=== PATIENT | female | born 1965 | race Caucasian/White ===

== ENCOUNTER 2018-08-27 14:37 | Emergency (ER) | payer OTHER ==
[~2018-08-27] VITALS: Ht 170.2 cm; Wt 81.7 kg
[~2018-08-27 14:37] MED LIST: NAPROSYN500 MG; NOHOMEMEDICATIONS; NORCO 5-325 TA1 EACH PO; XANAX XR1 MG
[2018-08-27] MEDS ORDERED: NOHOMEMEDICATIONS (14:49)
[2018-08-27 15:12] LABS: HEMATOCRIT 44.6 % (37.0-47.0); HEMOGLOBIN 15.2 gm/dL (12.0-15.0); MCH 30.6 pg (26.0-34.0); MCV 89.9 fL (80.0-100.0); MPV 7.8 fl. (7.2-11.1); NUCLEATED RBCS 0 /100WBC; PLATELET COUNT* 227 thou/uL (150-400); RBC 4.96 mil/uL (4.20-5.00); RDW-CV 13.2 % (10.5-14.5); WBC 10.7 thou/uL (4.0-11.0)
[2018-08-27 15:17] LABS: CALCIUM 9.2 mg/dL (8.5-10.1); CREATININE 0.8 mg/dL (0.6-1.3)
[2018-08-27 15:21] LABS: ALBUMIN 3.5 g/dL (3.4-5.0); TOTAL BILIRUBIN 0.4 mg/dL (<0.1-1.0); TOTAL PROTEIN 7.8 g/dL (6.4-8.2)
[2018-08-27] MEDS ORDERED: DOXYCYCLINE 10100 MG PO (16:01)
[2018-08-27] MEDS ORDERED: PREDNISONE 5 MG5 MG PO (16:01)
[2018-08-27] MEDS ORDERED: PROAIR HFA8.5 GM INH (16:01)
[2018-08-27] MEDS ORDERED: TESSALON PERLE100 MG PO (16:01)
[2018-08-27] MEDS ORDERED: PROMETHAZINE V473 ML PO (16:01)
[2018-08-27] MEDS ORDERED: ACETAMINOPHEN-1 EAC1 PO (16:10)
[2018-08-27 16:14] VITALS: BP 137/80
[2018-08-27 16:15] LABS: ABSOLUTE EOSINOPHILS 0.1 thou/uL (0.0-0.7); ABSOLUTE MONOCYTES 0.9 thou/uL (0.0-1.2); ABSOLUTE NEUTROPHILS 8.8 thou/uL (1.6-8.1)
[2018-08-27 16:17] LABS: PLATELET ESTIMATE ADEQUATE
== END 2018-08-27 16:15 | disposition home or self-care (01) ==
LOC: M.ERS 14:37
PROVIDERS: Physician Assistant
DX: R05 Cough (principal); R06.02 Shortness of breath; R53.81 Other malaise; G62.9 Polyneuropathy, unspecified; F17.210 Nicotine dependence, cigarettes, uncomplicated; Z90.710 Acquired absence of both cervix and uterus; Z98.890 Other specified postprocedural states; Z85.43 Personal history of malignant neoplasm of ovary

== ENCOUNTER 2018-11-18 11:17 | Inpatient (IN) | payer OTHER ==
[~2018-11-18] VITALS: Ht 170.2 cm; Wt 95.3 kg
[2018-11-18] VITALS (11 sets, daily range): BP systolic 149–196; BP diastolic 76–98
--- NOTE | ~2018-11-18 | CON ---
[address] [address] CONSULTATION Name: CODIE RODGERS Room: [address] IN .R.#: [id number] Admission: 11/18/18 Attend Phys: Balbir Allison MD Discharge: Date of : 69 Report #: [id number] THIS REPORT FOR: //name// CC: THANH physician/PCP Balbir Allison DATE OF SERVICE: 11/19/2018 CONSULTATION: Infectious diseases. HISTORY OF PRESENT ILLNESS: The patient is a 52-year-old white female admitted to the hospital on 11/18/2018 with a 24-hour history of headache and depressed mental status. Spinal fluid showed inflammatory changes. The patient was treated empirically for meningitis. Infectious Disease consultation was requested. The patient has no history of recent trauma, nothing that might explain why she might have a headache. She has had no exposure to anyone with a similar illness. PAST MEDICAL HISTORY: The patient has a history of cancer of the ovary, which I believe is in remission after chemotherapy. Other diagnoses include anxiety and depression. PAST SURGICAL HISTORY: Include section, hysterectomy and Port-A-Cath device for chemotherapy in 2011. ALLERGIES: Our chart shows no drug allergies. SOCIAL HISTORY: The patient is unmarried and lives with her daughter and grandchildren. She does smoke cigarettes. There is a question of alcohol use. She apparently was a heavy drinker in the past. She tells me now that she drinks, but not every day, but does not otherwise characterize or quantify her alcohol consumption. She is somewhat sedated after being extremely agitated this morning and cannot give much of a history. There is a history of consistent marijuana use. REVIEW OF SYSTEMS: Unavailable because of sedation. When asked, the patient will answer some questions. She does not endorse any cough, chest pain, shortness of breath, nausea, vomiting, diarrhea or urinary complaints. She was complaining of a severe headache earlier and says now that she has no head pain. PHYSICAL EXAMINATION: GENERAL: The patient appears her stated age, sedated, not in distress. When stimulated, the patient can arouse, open her eyes usp and answer a few questions [place] [address] CONSULTATION Name: CODIE RODGERS Room: [address] IN [facility].#: [id number] Admission: 11/18/18 Attend Phys: Balbir Allison MD Discharge: Date of : 69 Report #: [id number] SKIN: Shows no rash, lesion or exanthem. Palms and soles are normal. ENT: Shows some periorbital edema. Pupils are contracted suggestive of narcotic use. The patient did not demonstrate any photophobia, when I signed a bright light into her eyes. The oral cavity was normal, but the patient would not fully open her mouth for examination. NECK: Supple. NEUROLOGIC: When I dorsiflexed her head with my hands raising it off the pillow, she did not resist or grimace. No adenopathy. CARDIOVASCULAR: Heart sounds are normal. LUNGS: Clear to anterior auscultation. ABDOMEN: Belly soft and nontender. EXTREMITIES: Unremarkable. LABORATORY DATA: White count is 10.1, hemoglobin 14, hematocrit 43%, platelet 222,000. Electrolytes, BUN, creatinine, liver function tests are normal. Glucose was 134 in the ER, which compares to the spinal fluid glucose 57 an hour later. The spinal fluid analysis showed 581 white cells, 96% monos and lymphocytes and only 4% polys. The sugar was 57. The protein in the spinal fluid was 338. Other studies included normal liver tests, normal ammonia, normal lactate. Blood cultures x 2 are negative. Spinal fluid cultures negative so far. Chest x-ray is negative. CT of the head is negative. IMPRESSION: Aseptic meningitis, possibly complicated with alcohol withdrawal. PLAN: Meningitis patients typically want to hold very still with minimal stimulation in a dark room and resist being removed. The fact the patient was thrashing suggest that there may have been another component, very possible alcohol withdrawal, superimposed on her pain from meningitis. The patient now is on low dose Precedex and says she has no pain and is lying quietly, but tends to fall quickly back asleep. The spinal fluid analysis is not suggestive of bacterial meningitis. Although the spinal fluid white count is elevated, it is well below the usual threshold for bacterial meningitis, is also mostly lymphocytes and monocytes. This most likely is an aseptic meningitis, probably viral. At this time, I would suggest we can discontinue the vancomycin and Rocephin for bacterial meningitis and discontinue isolation, which is needed for meningococcal meningitis. We should continue the acyclovir until we can rule out herpes. I have asked her herpes PCR on spinal fluid be run. We could do the full viral panel, although the other viruses really do not affect treatment and that is a rather expensive test. We will continue to treat the patient for alcohol withdrawal. I am hopeful that she will wake up and be able to give us some more thorough history regarding tobacco, alcohol, and drug use to see this may be a factor in her condition. For now, we will treat the patient with supportive therapy, appropriate sedation, [place] [address] CONSULTATION Name: CODIE RODGERS Room: [address]#: [id number] Admission: 11/18/18 Attend Phys: Balbir Allison MD Discharge: Date of : 69 Report #: [id number] I appreciate the opportunity to offer input in the care of this patient. Thank you for requesting infectious disease input. Dr. Isabel will take over starting Tuesday. By: 1735 2250Martin Campbell MD /parth
--- NOTE | ~2018-11-18 | CON ---
[address] [address] CONSULTATION Name: CODIE RODGERS Room: [address] IN M.R.#: [id number] Admission: 11/18/18 Attend Phys: Balbir Allison MD Discharge: 11/22/18 Date of : 69 Report #: [id number] THIS REPORT FOR: //name// CC: FAM physician/PCP Balbir Allison MD DATE OF SERVICE: 11/22/2018 REFERRING PHYSICIAN: Dr. Balbir Allison. The patient has no primary care provider REASON FOR CONSULTATION: Hematemesis. IMPRESSION: 1. Scant hematemesis, most compatible with either reflux esophagitis versus Candida-Sanders tear versus less likely peptic ulcer disease. 2. Chronic acid reflux, well controlled with ranitidine once daily. 3. Recent diagnosis of suspected viral meningitis. 4. Personal history of ovarian cancer for which the patient was treated for the same back in [id number] and she has no evidence for disease at this time. (The patient is followed by Dr. Alyssa Barfield at [facility]). 5. ____ previous colonoscopy performed within the last year or so at [facility] and being negative with 2 previous examinations also being negative. 6. Chronic alcohol use. RECOMMENDATIONS: The patient appears to be stable to undergo endoscopic evaluation. Proceed with upper endoscopy today and make further recommendations thereafter. HISTORY OF PRESENT ILLNESS: The patient is a pleasant 52-year-old white female who presented to the Emergency Room with complaints of rather severe headache, nausea, vomiting, photophobia and was diagnosed with aseptic meningitis. She is currently on acyclovir for the same. She has had some problems with nausea, vomiting when she came into the hospital and has had some scant hematemesis. She denies dysphagia, odynophagia, but she has had previous upper endoscopies and dilations in the past. She does have reflux for which she takes ranitidine at home on a regular basis, she takes [id number]-[id number]. She denies any problem with any abdominal pain or problem with her bowels or bowel frequency. She has undergone endoscopic studies of his upper and lower GI tracts in the past at [facility] and her last colonoscopy was performed within the last couple of years by Dr. Lakhani's office in [facility]. She states it was normal. She did have some diverticular disease. [place] [address] CONSULTATION Name: CODIE RODGERS Room: [address] IN [facility]#: [id number] Admission: 11/18/18 Attend Phys: Balbir Allison MD Discharge: 11/22/18 Date of : 69 Report #: [id number] better compared to where she was with her headache and tolerating diet. ALLERGIES: None. MEDICATIONS: Include ranitidine and she has been on inhalers in the past. PAST MEDICAL AND SURGICAL HISTORY: Remarkable for ovarian cancer for which she was diagnosed and treated from [id number]. She also had full hysterectomy and left adrenal gland removal. She has underlying COPD as well. SOCIAL HISTORY: She smokes 1-2 packs a day; drinks alcohol on daily basis, about a pint of vodka. FAMILY HISTORY: Negative. PHYSICAL EXAMINATION: GENERAL: Revealed a 52-year-old white female, appears older than stated age. CARDIOPULMONARY: Revealed a regular rate and rhythm. LUNGS: Clear. ABDOMEN: Soft and not tender. No rebound or guarding noted. LABORATORY DATA: Revealed hemoglobin of 11 and otherwise normal CBC. Complete metabolic panel was negative. DISCUSSION: At the present time, the patient has had some problems with nausea, vomiting, hematemesis. We will proceed with upper endoscopy today and make further recommendations thereafter. By: 1406 [id number] Brownlee DO /parth
[~2018-11-18 11:17] MED LIST changes: +ACETAMINOPHEN-1 EAC1 PO; +DOXYCYCLINE 10100 MG PO; +PREDNISONE 5 MG5 MG PO; +PROAIR HFA8.5 GM INH; +PROMETHAZINE V473 ML PO; +TESSALON PERLE100 MG PO
[2018-11-18 15:15] LABS: HEMATOCRIT 46.9 % (37.0-47.0); HEMOGLOBIN 15.7 gm/dL (12.0-15.0); MCH 30.4 pg (26.0-34.0); MCHC 33.5 g/dL (28.0-37.0); MCV 90.7 fL (80.0-100.0); MPV 8.8 fl. (7.2-11.1); NUCLEATED RBCS 0 /100WBC; PLATELET COUNT* 228 thou/uL (150-400); RBC 5.17 mil/uL (4.20-5.00); RDW-CV 13.1 % (10.5-14.5); WBC 11.5 thou/uL (4.0-11.0)
[2018-11-18 15:19] LABS: CALCIUM 9.9 mg/dL (8.5-10.1); CREATININE 0.9 mg/dL (0.6-1.3); POTASSIUM 3.9 mmol/L (3.5-5.1)
[2018-11-18 15:31] LABS: TOTAL BILIRUBIN 0.4 mg/dL (<0.1-1.0); TOTAL PROTEIN 8.4 g/dL (6.4-8.2)
[2018-11-18 15:35] LABS: CSF GLUCOSE 57 mg/dl (40-70)
[2018-11-18 15:46] LABS: CSF PROTEIN 338.5 mg/dl (15-45)
[2018-11-18 16:34] LABS: CSF CLARITY SLIGHTLY HAZY; CSF COLOR COLORLESS; VOLUME 12 ml
[2018-11-18 16:35] LABS: CSF RBC 164 /mm3
[2018-11-18 16:46] LABS: CSF LYMPHOCYTES 75 % (40-80); CSF MONONUCLEARS 21 % (15-45); CSF POLYS 4 % (0-6)
[2018-11-18 16:49] LABS: CSF WBC 581 /mm3 (0-10)
[2018-11-18 17:08] LABS: ABSOLUTE LYMPHOCYTES 0.7 thou/uL (0.8-5.3); ABSOLUTE MONOCYTES 0.6 thou/uL (0.0-1.2); ABSOLUTE NEUTROPHILS 10.2 thou/uL (1.6-8.1)
[2018-11-18 17:09] LABS: PLATELET ESTIMATE ADEQUATE
[2018-11-18 23:01] LABS: AMP/METHAMP Negative (Negative); BARBITURATES Negative (Negative); BENZODIAZEPINES Negative (Negative); COCAINE Negative (Negative); METHADONE Negative (Negative); OPIATES POSITIVE (Negative); PCP Negative (Negative); THC POSITIVE (Negative)
[2018-11-18 23:09] LABS: URINE BILIRUBIN NEGATIVE (Negative); URINE BLOOD NEGATIVE (Negative); URINE CLARITY CLEAR; URINE COLOR YELLOW; URINE GLUCOSE-RANDOM NEGATIVE (Negative); URINE KETONES NEGATIVE (Negative); URINE LEUKOCYTES-REFLEX NEGATIVE (Negative); URINE NITRITE-REFLEX NEGATIVE (Negative); URINE PROTEIN 2+ (Negative); URINE SPECIFIC GRAVITY >= 1.030 (1.005-1.030); URINE UROBILINOGEN 0.2 E.U./dl (0.2-1.0)
[2018-11-18 23:43] LABS: CASTS None Seen /LPF (None Seen); MUCUS 4-6 Moderate strn/LPF (None Seen); SQUAMOUS >10 Many /LPF (0-3)
[2018-11-18 23:44] LABS: AMORPHOUS URATES Few /LPF (None Seen); URINE RBC None Seen /HPF (0-2); URINE WBC-REFLEX 0-5 Rare /HPF (0-5)
[2018-11-19] VITALS (26 sets, daily range): BP systolic 98–168; BP diastolic 57–93
[2018-11-19 01:50] LABS: CALCIUM 9.2 mg/dL (8.5-10.1); MAGNESIUM 1.5 mg/dL (1.8-2.4); POTASSIUM 3.9 mmol/L (3.5-5.1)
[2018-11-19 01:51] LABS: PROTIME 10.4 Seconds (9.20-11.50)
[2018-11-19 02:21] LABS: ABSOLUTE LYMPHOCYTES 0.4 thou/uL (0.8-5.3); ABSOLUTE MONOCYTES 0.3 thou/uL (0.0-1.2); ABSOLUTE NEUTROPHILS 9.4 thou/uL (1.6-8.1); BASOPHILS 0.1 %; HEMATOCRIT 43.3 % (37.0-47.0); HEMOGLOBIN 14.6 gm/dL (12.0-15.0); LYMPHOCYTES 3.5 %; MCH 30.3 pg (26.0-34.0); MCHC 33.6 g/dL (28.0-37.0); MCV 90.2 fL (80.0-100.0); MONOCYTES 3.2 %; MPV 8.4 fl. (7.2-11.1); NUCLEATED RBCS 0 /100WBC; PLATELET COUNT* 222 thou/uL (150-400); POLYS 93.2 %; RDW-CV 13.2 % (10.5-14.5); WBC 10.1 thou/uL (4.0-11.0)
[2018-11-20] VITALS (15 sets, daily range): BP systolic 113–178; BP diastolic 62–95
[2018-11-20 04:22] LABS: HEMATOCRIT 38.6 % (37.0-47.0); MCH 30.4 pg (26.0-34.0); MCHC 33.6 g/dL (28.0-37.0); MCV 90.3 fL (80.0-100.0); MPV 8.1 fl. (7.2-11.1); RBC 4.27 mil/uL (4.20-5.00); RDW-CV 13.2 % (10.5-14.5); WBC 9.4 thou/uL (4.0-11.0)
[2018-11-20 05:03] LABS: ALBUMIN 2.8 g/dL (3.4-5.0); CALCIUM 8.3 mg/dL (8.5-10.1); MAGNESIUM 1.9 mg/dL (1.8-2.4); POTASSIUM 3.9 mmol/L (3.5-5.1); TOTAL BILIRUBIN 0.5 mg/dL (<0.1-1.0); TOTAL PROTEIN 6.3 g/dL (6.4-8.2)
[2018-11-20 14:06] LABS: HIV-1/HIV-2 ANTIBODY Non Reactive (Non Reactive)
[2018-11-21 00:40] VITALS: BP 163/82
[2018-11-21 04:21] VITALS: BP 162/85
[2018-11-21 10:11] VITALS: BP 155/88
--- NOTE | 2018-11-21 15:02 | 2DMMODE ---
[place] [address] 2 D/M-MODE ECHOCARDIOGRAM Name: CODIE RODGERS Room: [address] IN [facility]#: [id number] Admission: 11/18/18 Attend Phys: Balbir Allison MD Discharge: Date of : 69 Date of Service: 11/21/18 1502 Report #: [id number] THIS REPORT FOR: //name// APPROVED REPORT Study performed: 11/21/2018 11:34:29 EXAM: Comprehensive 2D, Doppler, and color-flow Echocardiogram Patient Location: In-Patient Room #: [facility] Status: routine BSA: 1.98 HR: 81 bpm BP: 155/88 mmHg Rhythm: NSR Other Information Study Quality: Good Indications Tachycardia Hypertension/HDD SVT 2D Dimensions IVSd: 8.65 (7-11mm) LVOT Diam: 20.06 (18-24mm) LVDd: 43.05 mm PWd: 8.37 (7-11mm) Ascending Ao: 30.44 (22-36mm) LVDs: 26.79 (25-40mm) Aortic Root: 29.02 mm Volumes Left Atrial Volume (Systole) LA ESV Index: 20.60 mL/m2 Aortic Valve AoV Peak Rodger.: 1.51 m/s AO Peak Gr.: 9.07 mmHg LVOT Max P.72 mmHg AO Mean Gr.: 4.46 mmHg LVOT Mean P.74 mmHg LVOT Max V: 1.20 m/s AO V2 VTI: 27.80 cm LVOT Mean V: 0.75 m/s MISSAEL (VTI): 2.84 cm2 LVOT V1 VTI: 24.99 cm Mitral Valve E/A Ratio: 1.11 [place] [address] 2 D/M-MODE ECHOCARDIOGRAM Name: CODIE RODGERS Room: [address] IN .R.#: [id number] Admission: 11/18/18 Attend Phys: Balbir Allison MD Discharge: Date of : 69 Date of Service: 11/21/18 1502 Report #: [id number] MV Decel. Time: 171.97 ms MV E Max Rodger.: 0.98 m/s MV PHT: 49.87 ms MVA (PHT): 4.41 cm2 TDI E/Lateral E': 7.54 E/Medial E': 6.13 Medial E' Rodger.: 0.16 m/s Lateral E' Rodger.: 0.13 m/s Pulmonary Valve PV Peak Rodger.: 1.08 m/s PV Peak Gr.: 4.65 mmHg Tricuspid Valve RAP Estimate: 5.00 mmHg TR Peak Gr.: 31.61 mmHg RVSP: 36.00 mmHg PA Pressure: 36.00 mmHg Left Ventricle The left ventricle is normal size. There is normal LV segmental wall motion. There is normal left ventricular wall thickness. Left ventricular systolic function is normal. The left ventricular ejection fraction is within the normal range. LVEF is 60-65%. The left ventricular diastolic function is normal. Right Ventricle The right ventricle is normal size. The right ventricular systolic function is normal. Atria The left atrium size is normal. The right atrium size is normal. Aortic Valve The aortic valve is normal in structure. No aortic regurgitation is present. There is no aortic valvular stenosis. Mitral Valve The mitral valve is normal in structure. Mild mitral regurgitation. No evidence of mitral valve stenosis. Tricuspid Valve The tricuspid valve is normal in structure. Mild tricuspid [place]urgitation[place] [address] 2 D/M-MODE ECHOCARDIOGRAM Name: RODGERSCODIE Room: [address] IN [facility]#: [id number] Admission: 11/18/18 Attend Phys: Balbir Allison MD Discharge: Date of : 69 Date of Service: 11/21/18 1502 Report #: [id number] The pulmonary valve is normal in structure. There is no pulmonic valvular regurgitation. Great Vessels The aortic root is normal in size. IVC is normal in size and collapses >50% with inspiration. Pericardium There is no pericardial effusion. <Conclusion> LVEF is 60-65%. There is normal LV segmental wall motion. The left ventricular diastolic function is normal. There is no aortic valvular stenosis. No aortic regurgitation is present. Mild mitral regurgitation. Mild tricuspid regurgitation. <ELECTRONICALLY SIGNED> By: Chris Anne MD, FACC 11/21/18 1502 1502 1502 Chris Anne MD, FACC /INF
[2018-11-21 17:15] VITALS: BP 158/74
[2018-11-21 20:00] VITALS: BP 151/78
[2018-11-22] VITALS: BP 133/51
[2018-11-22 04:00] VITALS: BP 144/74
[2018-11-22 04:09] LABS: HEMATOCRIT 34.5 % (37.0-47.0); HEMOGLOBIN 11.9 gm/dL (12.0-15.0); MCH 30.7 pg (26.0-34.0); MCHC 34.5 g/dL (28.0-37.0); MCV 89.1 fL (80.0-100.0); RBC 3.87 mil/uL (4.20-5.00); RDW-CV 12.6 % (10.5-14.5); WBC 5.1 thou/uL (4.0-11.0)
[2018-11-22 04:23] LABS: CALCIUM 8.6 mg/dL (8.5-10.1); CREATININE 0.8 mg/dL (0.6-1.3); POTASSIUM 3.5 mmol/L (3.5-5.1)
[2018-11-22] MEDS ORDERED: COREG6.25 MG PO (14:14)
[2018-11-22 15:05] VITALS: BP 144/74
--- NOTE | 2018-11-22 15:50 | EKG ---
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: : 1965 Requested By: Balbir Allison Order Number: [id number] Reading MD: Martin Pavon Measurements Intervals [place] Rate: 88 P: 48 DE: 141 QRS: -20 QRSD: 81 T: 29 QT: 366 QTc: 443 Interpretive Statements Sinus rhythm Borderline left axis deviation Baseline wander in lead(s) V3 No previous ECG available for comparison Electronically Signed On 11-22-2018 15:50:21 RESEARCH AND DEVELOPMENT CHEMIST by Martin Pavon [email or web address] <ELECTRONICALLY SIGNED> By: Martin Pavon MD, [facility] 11/22/18 1550 D: 021021 21 Martin Pavon MD, FACC /EPI
[2018-11-22 21:11] LABS: HSV 1 DNA Negative (Negative); HSV 2 DNA Positive (Negative)
--- NOTE | 2018-11-23 12:23 | CON ---
[address] [address] CONSULTATION Name: CODIE RODGERS Room: [address] IN M.R.#: [id number] Admission: 11/18/18 Attend Phys: Balbir Allison MD Discharge: 11/22/18 Date of : 69 Report #: [id number] THIS REPORT FOR: //name// CC: THANH physician/PCP Balbir Allison DATE OF SERVICE: 11/21/2018 PRIMARY CARE PHYSICIAN: None. REASON FOR CONSULTATION: Tachycardia. HISTORY OF PRESENT ILLNESS: The patient is a 52-year-old female we are referred to see in regards to possible atrial fibrillation. She was admitted with meningitis and alcohol withdrawal. She had a narrow complex regular appearing tachycardia compatible with SVT on telemetry with heart rates in the 160s. They spontaneously terminated. The patient did feel symptoms of palpitations or heart racing. At the time of my arrival for evaluation, the patient was getting her echocardiogram and she appears to have grossly normal LV systolic function. She has had some symptoms of heart racing intermittently as an outpatient, but has no serious symptoms of shortness of breath, chest pain, syncope, or presyncope. There is no family history of sudden . PAST MEDICAL HISTORY: She was diagnosed with viral meningitis with severe headache and hospitalization here. 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 She is a smoker. ALLERGIES: She has no known drug allergies. SOCIAL HISTORY: She is single, lives alone. She is still working. REVIEW OF SYSTEMS: GENERAL: No fevers or chills. PULMONARY: Wheezing, mild. No orthopnea or PND. CARDIOVASCULAR: No chest pain. Positive palpitations. NEUROLOGIC: Positive headaches. No blurry vision. No seizures. HEMATOLOGIC: No anemia or bleeding disorders. RENAL: No history of kidney failure. ENDOCRINE: She is not known to be a diabetic. SKIN: [place] [address] CONSULTATION Name: CODIE RODGERS Room: [address]#: [id number] Admission: 11/18/18 Attend Phys: Balbir Allison MD Discharge: 11/22/18 Date of : 69 Report #: [id number] PHYSICAL EXAMINATION: VITAL SIGNS: Upon presentation, blood pressure is 160s/80s, sinus rhythm. GENERAL: This is a pleasant middle-aged woman. She is alert and oriented, in no apparent distress. HEENT: Eyes: EOMs intact. Face: There is no facial asymmetry. No exophthalmos. NECK: Supple. No jugular venous distention. CARDIOVASCULAR: Regular. I could not hear a murmur or S3. LUNGS: Clear to auscultation bilaterally. ABDOMEN: Nontender. EXTREMITIES: No peripheral edema. NEUROLOGIC: There are no focal deficits. Resting telemetry shows a sinus rhythm. LABORATORY DATA: Hemoglobin is 13.0, white blood count is 9.4, platelet count is 166,000. Toxicology is positive for marijuana and positive for opiates. INR is 1.0. Hemoglobin is 13.0. IMAGING: CT scan of the brain shows no acute intracranial process, moderate thickening of the frontal sinus. IMPRESSION: 1. Severe headache. She is being treated for viral meningitis. 2. Supraventricular tachycardia. I think this is secondary to increased catecholamine load from alcohol and drug withdrawal in addition to electrolyte abnormalities. I would place her on a low dose of beta blockers. A resting echocardiogram shows grossly normal LV function. We will check thyroid function studies. This could be transient and likely once her withdrawal is completed, she will not likely have any recurrences. 3. History of ovarian cancer. Her echocardiogram shows no evidence of pericardial effusion. <ELECTRONICALLY SIGNED> By: Chris Anne MD, FACC 11/23/18 1223 1148 2144Chris Anne MD, FACC /nt
== END 2018-11-22 16:30 | disposition home or self-care (01) | DRG 97 ==
LOC: M.ERS 11:17 → M.ICU 16:37 → M.TBA-ER 16:37 → M.3W 16:37 → M.ICU 17:39 → M.3W 11-20 16:08
PROVIDERS: Emergency Medicine Emergency Medical Services; Internal Medicine Infectious Disease; ADMIT Family Medicine
PROC: 009U3ZX Drainage of Spinal Canal, Percutaneous Approach, Diagnostic (ICD-10-PCS; principal; 2018-11-18)
PROC: 0DJ08ZZ Inspection of Upper Intestinal Tract, Via Natural or Artificial Opening Endoscopic (ICD-10-PCS; 2018-11-22)
DX: G03.0 Nonpyogenic meningitis (principal); G93.41 Metabolic encephalopathy; F10.239 Alcohol dependence with withdrawal, unspecified; I47.1 Supraventricular tachycardia; K92.0 Hematemesis; A39.0 Meningococcal meningitis; K21.9 Gastro-esophageal reflux disease without esophagitis; A87.9 Viral meningitis, unspecified; F17.210 Nicotine dependence, cigarettes, uncomplicated; G62.9 Polyneuropathy, unspecified; R03.0 Elevated blood-pressure reading, without diagnosis of hypertension; I48.91 Unspecified atrial fibrillation; K22.5 Diverticulum of esophagus, acquired; K44.9 Diaphragmatic hernia without obstruction or gangrene; F41.9 Anxiety disorder, unspecified; F32.9 Major depressive disorder, single episode, unspecified; Z92.21 Personal history of antineoplastic chemotherapy; Z85.43 Personal history of malignant neoplasm of ovary; Z98.891 History of uterine scar from previous surgery; Z90.710 Acquired absence of both cervix and uterus; Z79.899 Other long term (current) drug therapy

== ENCOUNTER 2018-11-24 19:21 | Emergency (ER) | payer OTHER ==
[~2018-11-24] VITALS: Ht 170.2 cm; Wt 86.2 kg
[~2018-11-24 19:21] MED LIST changes: +COREG6.25 MG PO
[2018-11-24 19:31] VITALS: BP 193/98
[2018-11-24 20:12] LABS: ABSOLUTE BASOPHILS 0.1 thou/uL (0.0-0.2); ABSOLUTE EOSINOPHILS 0.4 thou/uL (0.0-0.7); ABSOLUTE LYMPHOCYTES 1.6 thou/uL (0.8-5.3); ABSOLUTE MONOCYTES 0.7 thou/uL (0.0-1.2); ABSOLUTE NEUTROPHILS 7.4 thou/uL (1.6-8.1); EOSINOPHILS 3.6 %; HEMATOCRIT 41.1 % (37.0-47.0); LYMPHOCYTES 15.7 %; MCH 30.1 pg (26.0-34.0); MCHC 33.8 g/dL (28.0-37.0); MONOCYTES 7.1 %; MPV 7.8 fl. (7.2-11.1); NUCLEATED RBCS 0 /100WBC; POLYS 72.6 %; RBC 4.61 mil/uL (4.20-5.00); RDW-CV 12.9 % (10.5-14.5); WBC 10.2 thou/uL (4.0-11.0)
[2018-11-24 20:16] LABS: CALCIUM 9.4 mg/dL (8.5-10.1); CREATININE 1.1 mg/dL (0.6-1.3); POTASSIUM 3.5 mmol/L (3.5-5.1)
[2018-11-24 20:17] LABS: HEMOGLOBIN 13.9 gm/dL (12.0-15.0); PLATELET COUNT* 298 thou/uL (150-400)
[2018-11-24 20:21] LABS: ALBUMIN 3.4 g/dL (3.4-5.0); TOTAL BILIRUBIN 0.3 mg/dL (<0.1-1.0); TOTAL PROTEIN 7.3 g/dL (6.4-8.2)
[2018-11-24 22:45] VITALS: BP 177/79
== END 2018-11-24 22:45 | disposition home or self-care (01) ==
LOC: M.ERS 19:21 → M.TBA-ER 21:55 → M.ERS 22:45
PROVIDERS: Physician Assistant
DX: R51 Headache (principal); R11.2 Nausea with vomiting, unspecified; G62.9 Polyneuropathy, unspecified; Z98.890 Other specified postprocedural states; Z90.710 Acquired absence of both cervix and uterus; Z85.43 Personal history of malignant neoplasm of ovary

== ENCOUNTER 2019-04-23 08:41 | Emergency (ER) | payer OTHER ==
[~2019-04-23] VITALS: Ht 172.7 cm; Wt 81.7 kg
[2019-04-23] MEDS ORDERED: PREDNISONE50 MG PO (10:04)
[2019-04-23] MEDS ORDERED: AMOXICILLIN500 M1 PO (10:04)
[2019-04-23] MEDS ORDERED: VENTOLIN HFA 1818 GM INH (10:04)
[2019-04-23 10:11] VITALS: BP 112/74
== END 2019-04-23 10:11 | disposition home or self-care (01) ==
LOC: M.ERS 08:41
DX: J40 Bronchitis, not specified as acute or chronic (principal); F17.210 Nicotine dependence, cigarettes, uncomplicated; Z85.43 Personal history of malignant neoplasm of ovary; Z90.710 Acquired absence of both cervix and uterus; Z98.890 Other specified postprocedural states

== ENCOUNTER 2020-02-11 18:47 | Emergency (ER) | payer OTHER ==
[~2020-02-11] VITALS: Ht 170.2 cm; Wt 88.5 kg
[~2020-02-11 18:47] MED LIST changes: +AMOXICILLIN500 M1 PO; +PREDNISONE50 MG PO; +VENTOLIN HFA 1818 GM INH
[2020-02-11 19:22] LABS: ABSOLUTE BASOPHILS 0.1 thou/uL (0.0-0.2); ABSOLUTE EOSINOPHILS 0.3 thou/uL (0.0-0.7); ABSOLUTE LYMPHOCYTES 2.3 thou/uL (0.8-5.3); ABSOLUTE MONOCYTES 0.5 thou/uL (0.0-1.2); ABSOLUTE NEUTROPHILS 4.5 thou/uL (1.6-8.1); EOSINOPHILS 4.3 %; HEMATOCRIT 41.7 % (37.0-47.0); HEMOGLOBIN 14.6 gm/dL (12.0-15.0); LYMPHOCYTES 29.9 %; MCH 29.5 pg (26.0-34.0); MCHC 35.1 g/dL (28.0-37.0); MCV 84.1 fL (80.0-100.0); MONOCYTES 6.8 %; MPV 8.5 fl. (7.2-11.1); NUCLEATED RBCS 0 /100WBC; PLATELET COUNT* 222 thou/uL (150-400); RBC 4.96 mil/uL (4.20-5.00); RDW-CV 13.9 % (10.5-14.5); WBC 7.8 thou/uL (4.0-11.0)
[2020-02-11 19:30] LABS: CALCIUM 8.7 mg/dL (8.5-10.1); CREATININE 1.1 mg/dL (0.6-1.3); POTASSIUM 3.5 mmol/L (3.5-5.1)
[2020-02-11 19:32] LABS: APTT 28.7 Seconds (25.0-31.3); PROTIME 10.4 Seconds (9.20-11.50)
[2020-02-11 19:44] LABS: ALBUMIN 3.5 g/dL (3.4-5.0); CK-MB MASS 0.6 ng/mL (<0.5-3.6); MAGNESIUM 1.7 mg/dL (1.8-2.4); TOTAL BILIRUBIN 0.3 mg/dL (<0.1-1.0); TOTAL PROTEIN 7.4 g/dL (6.4-8.2)
[2020-02-11 20:07] VITALS: BP 120/84
--- NOTE | 2020-02-12 11:49 | EKG ---
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
== END 2020-02-11 20:10 | disposition home or self-care (01) ==
LOC: M.ERS 18:47
PROVIDERS: Family Medicine
DX: R07.89 Other chest pain (principal); I10 Essential (primary) hypertension; G62.9 Polyneuropathy, unspecified; F17.210 Nicotine dependence, cigarettes, uncomplicated; Z85.43 Personal history of malignant neoplasm of ovary; Z90.710 Acquired absence of both cervix and uterus; Z98.890 Other specified postprocedural states

== ENCOUNTER 2020-05-20 14:35 | Emergency (ER) | payer OTHER ==
[~2020-05-20] VITALS: Ht 170.2 cm; Wt 88.5 kg
[2020-05-20 16:01] VITALS: BP 118/80
== END 2020-05-20 16:02 | disposition home or self-care (01) ==
LOC: M.ERS 14:35
DX: S50.11XA Contusion of right forearm, initial encounter (principal); G62.9 Polyneuropathy, unspecified; Z85.43 Personal history of malignant neoplasm of ovary; Z90.710 Acquired absence of both cervix and uterus; Z98.890 Other specified postprocedural states; F17.210 Nicotine dependence, cigarettes, uncomplicated; W23.0XXA Caught, crushed, jammed, or pinched between moving objects, initial encounter; Y93.89 Activity, other specified; Y92.89 Other specified places as the place of occurrence of the external cause; Y99.8 Other external cause status

== ENCOUNTER 2021-02-26 08:21 | Observation (INO) | payer OTHER ==
[~2021-02-26] VITALS: Ht 170.2 cm; Wt 90.7 kg
[2021-02-26 08:30] VITALS: BP 146/79
[2021-02-26 09:13] LABS: ABSOLUTE BASOPHILS 0.1 thou/uL (0.0-0.2); ABSOLUTE EOSINOPHILS 0.2 thou/uL (0.0-0.7); ABSOLUTE LYMPHOCYTES 1.6 thou/uL (0.8-5.3); ABSOLUTE MONOCYTES 0.4 thou/uL (0.0-1.2); ABSOLUTE NEUTROPHILS 4.4 thou/uL (1.6-8.1); BASOPHILS 0.8 %; EOSINOPHILS 2.7 %; HEMATOCRIT 38.5 % (37.0-47.0); HEMOGLOBIN 12.7 gm/dL (12.0-15.0); LYMPHOCYTES 24.4 %; MCH 27.3 pg (26.0-34.0); MCHC 33.1 g/dL (28.0-37.0); MCV 82.4 fL (80.0-100.0); MONOCYTES 6.1 %; MPV 8.2 fl. (7.2-11.1); NUCLEATED RBCS 0 /100WBC; PLATELET COUNT* 224 thou/uL (150-400); RBC 4.66 mil/uL (4.20-5.00); RDW-CV 14.3 % (10.5-14.5); WBC 6.7 thou/uL (4.0-11.0)
[2021-02-26 09:30] LABS: CALCIUM 8.9 mg/dL (8.5-10.1); CREATININE 0.8 mg/dL (0.6-1.3); POTASSIUM 4.3 mmol/L (3.5-5.1)
[2021-02-26 09:34] LABS: ALBUMIN 3.7 g/dL (3.4-5.0); MAGNESIUM 1.8 mg/dL (1.8-2.4); TOTAL BILIRUBIN 0.3 mg/dL (<0.1-1.0); TOTAL PROTEIN 7.7 g/dL (6.4-8.2)
[2021-02-26 12:00] VITALS: BP 111/64
[2021-02-26 12:56] VITALS: BP 148/86
--- NOTE | 2021-02-26 13:21 | 2DMMODE ---
[place] [address] 2 D/M-MODE ECHOCARDIOGRAM Name: CODIE RODGERS Carlos Room: [address] [place]#: [id number] Admission: 02/26/21 Attend Phys: Zaida Ha, Discharge: Date of : 69 Date of Service: 02/26/21 1321 Report #: [id number] THIS REPORT FOR: cc: FAM - No family physician/PCP FAM - No family physician/PCP Lobo Aquino MD [facility] ~ APPROVED REPORT Study performed: 02/26/2021 12:26:15 EXAM: Comprehensive 2D, Doppler, and color-flow Echocardiogram Patient Location: Observation BSA: 2.02 HR: 61 bpm BP: 141/54 mmHg Other Information Study Quality: Good Indications Bradycardia 2D Dimensions IVSd: 10.87 (7-11mm) LVOT Diam: 18.45 (18-24mm) LVDd: 42.09 mm PWd: 10.08 (7-11mm) Ascending Ao: 28.98 (22-36mm) LVDs: 28.09 (25-40mm) Aortic Root: 24.26 mm Volumes Left Atrial Volume (Systole) LA ESV Index: 11.00 mL/m2 Aortic Valve AoV Peak Rodger.: 0.97 m/s AO Peak Gr.: 3.76 mmHg LVOT Max P.61 mmHg AO Mean Gr.: 2.30 mmHg LVOT Mean P.66 mmHg LVOT Max V: 0.95 m/s AO V2 VTI: 19.13 cm LVOT Mean V: 0.58 m/s MISSAEL (VTI): 3.08 cm2 LVOT V1 VTI: 22.03 cm Mitral Valve E/A Ratio: 0.93 [place] [address] 2 D/M-MODE ECHOCARDIOGRAM Name: CODIE RODGERS [address]: [address]#: [id number] Admission: 02/26/21 Attend Phys: Zaida Ha, Discharge: Date of : 69 Date of Service: 02/26/21 1321 Report #: [id number] MV Decel. Time: 182.33 ms MV E Max Rodger.: 0.84 m/s MV PHT: 52.88 ms MVA (PHT): 4.16 cm2 TDI E/Lateral E': 14.00 E/Medial E': 7.64 Medial E' Rodger.: 0.11 m/s Lateral E' Rodger.: 0.06 m/s Pulmonary Valve PV Peak Rodger.: 0.89 m/s PV Peak Gr.: 3.15 mmHg Tricuspid Valve RAP Estimate: 20.00 mmHg TR Peak Gr.: 31.06 mmHg RVSP: 51.06 mmHg PA Pressure: 51.06 mmHg Left Ventricle The left ventricle is normal size. There is normal LV segmental wall motion. There is normal left ventricular wall thickness. Left ventricular systolic function is normal. LVEF is 70%. The left ventricular diastolic function is normal. Right Ventricle The right ventricle is normal size. The right ventricular systolic function is normal. Atria The left atrium size is normal. The atrial septum is aneurysmal. The right atrium size is normal. Aortic Valve The aortic valve is normal in structure. No aortic regurgitation is present. There is no aortic valvular stenosis. Mitral Valve The mitral valve is normal in structure. Trace mitral regurgitation. No evidence of mitral valve stenosis. Tricuspid Valve The tricuspid valve is normal in structure. Trace tricuspid regurgitation. Pulmonic Valve The pulmonary valve is normal in structure. [place] [address] 2 D/M-MODE ECHOCARDIOGRAM Name: CODIE RODGERS Room: [address]#: [id number] Admission: 02/26/21 Attend Phys: Zaida Ha, Discharge: Date of : 69 Date of Service: 02/26/21 1321 Report #: [id number] valvular regurgitation. Great Vessels The aortic root is normal in size. IVC is normal in size and collapses >50% with inspiration. Pericardium There is no pericardial effusion. <Conclusion> The left ventricle is normal size. There is normal left ventricular wall thickness. Left ventricular systolic function is normal. LVEF is 70%. The left ventricular diastolic function is normal. There is normal LV segmental wall motion. Trace mitral regurgitation. Trace tricuspid regurgitation. <ELECTRONICALLY SIGNED> By: Lobo Aquino MD, FACC 02/26/21 1321 1321 132 Lobo Aquino MD, FACC /INF
--- NOTE | 2021-02-26 15:24 | EKG ---
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
--- NOTE | 2021-02-26 15:24 | EKG ---
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
[2021-02-26 15:49] VITALS: BP 107/69
[2021-02-26 19:35] VITALS: BP 146/75
--- NOTE | 2021-02-26 22:14 | NUR ---
pt arrived per cart and placed and oriented to room 201 and staff. pt placed on the heart monitor and is bradicardic. pt has saline lock in her right ac space, dressing c/d/i. vss afebrile. will continue to monitor plan of care.
[2021-02-27] VITALS: BP 131/54
--- NOTE | 2021-02-27 00:35 | NUR ---
ASSUMED CARE OF PT AT 1900. PT IS ALERT AND ORIENTED. PERRLA. NO COMPLAINTS OF PAIN. PT IS BRADYCARDIC. HEART RATE IS IN THE 40'S. PT IS SINUS BRADYCARDIA. PT IS SLEEPING QUIETLY IN BED. RESPIRATIONS ARE EVEN AND NONLABORED. WILL CONTINUE TO MONITOR PT.
[2021-02-27 04:00] VITALS: BP 153/64
[2021-02-27 04:24] LABS: HEMATOCRIT 37.7 % (37.0-47.0); HEMOGLOBIN 12.4 gm/dL (12.0-15.0); MCH 27.7 pg (26.0-34.0); MCV 83.9 fL (80.0-100.0); MPV 8.9 fl. (7.2-11.1); RBC 4.49 mil/uL (4.20-5.00); RDW-CV 14.6 % (10.5-14.5); WBC 6.5 thou/uL (4.0-11.0)
[2021-02-27 04:48] LABS: ALBUMIN 3.3 g/dL (3.4-5.0); CALCIUM 8.8 mg/dL (8.5-10.1); CREATININE 0.9 mg/dL (0.6-1.3); MAGNESIUM 1.9 mg/dL (1.8-2.4); POTASSIUM 4.5 mmol/L (3.5-5.1); TOTAL BILIRUBIN 0.2 mg/dL (<0.1-1.0); TOTAL PROTEIN 7.2 g/dL (6.4-8.2)
[2021-02-27 08:00] VITALS: BP 149/44
[2021-02-27 12:00] VITALS: BP 131/87
--- NOTE | 2021-02-27 13:04 | NUR ---
Pt to dc post stress test
[2021-02-27 16:37] VITALS: BP 131/87
--- NOTE | 2021-02-27 17:12 | NUR ---
ASSUMED CARE OF PT AT 0730. PT A&0X4, DENIES ANY PAIN OR SHORTNESS OF BREATH THROUGHOUT SHIFT. PT HAD STRESS TEST TODAY. RESULTS BACK-NEGATIVE. OK FOR DISCHARGE PER CARDIOLOGY. PT TRACED SB ON THE PROJECT LEADER THROUGHOUT SHIFT. ON RA SAT UPPER 90'S. PT UP AD ANMOL IN ROOM. DISCHARGE ORDERS RECEIVED. DISCHARGE INSTRUCTIONS AND FOLLOW UP APPTS GIVEN TO PT. PT COMMUNICATES UNDERSTANDING OF DISCHARGE TEACHING. IV AND PROJECT LEADER REMOVED. PT DISCHARGED WITH ALL BELONGINGS AND PAPERWORK VIA WHEELCHAIR WITH NURSING STAFF TO DAUGHTER OWN PERSONAL VEHICLE.
--- NOTE | 2021-02-28 11:28 | TST ---
[place] [address] TREADMILL STRESS TEST Name: CODIE RODGERS Room: [address] [place]#: [id number] Admission: 02/26/21 Attend Phys: Zaida Ha, Discharge: 02/27/21 Date of : 69 Date of Service: 02/27/21 1500 Report #: [id number] THIS REPORT FOR: cc: FAM - No family physician/PCP FAM - No family physician/PCP Martin Pavon MD [facility] ~ DOC #: [id number] cc: MD Martin Storm MD [facility] DATE OF SERVICE: 02/27/2021 Resting 12-lead electrocardiogram demonstrates sinus bradycardia with sinus arrhythmia. The patient exercised for 6 minutes and 14 seconds of a Mp protocol, stopping because of fatigue and shortness of breath. She denied chest pain. The patient achieved a peak heart rate of 146, 89% of the age-predicted maximum. Blood pressure is 142/83, increasing to 196/92 at peak exercise. Then, fell to 164/82 during the post-exercise phase. There were no ischemic ST-T changes observed during or post-exercise. There were no significant supraventricular or ventricular arrhythmias. IMPRESSION: 1. Negative treadmill exercise test for provocation of ischemic ST-T alterations. 2. No chest pain provoked by exertion. 3. Minimally blunted peak heart rate response to exercise. 4. Appropriate increase in systolic blood pressure provoked by exertion. 5. No significant arrhythmias noted. 6. Modestly reduced level of fitness for age. Martin Pavon MD [facility]/TIKI <ELECTRONICALLY SIGNED> By: Martin Pavon MD, [facility] 02/28/21 1128 1500 05 Martin Pavon MD, [facility] /nt
== END 2021-02-27 17:16 | disposition home or self-care (01) ==
LOC: M.ERS 08:21 → M.TBA-ER 10:44 → M.2W 13:03
PROVIDERS: Emergency Medicine Emergency Medical Services; ADMIT Internal Medicine; ATTEND Internal Medicine
DX: R00.1 Bradycardia, unspecified (principal); R07.89 Other chest pain; Z20.822 Contact with and (suspected) exposure to COVID-19; R42 Dizziness and giddiness; R20.2 Paresthesia of skin; G62.9 Polyneuropathy, unspecified; Z87.891 Personal history of nicotine dependence; Z79.899 Other long term (current) drug therapy

== ENCOUNTER 2021-09-17 13:28 | Emergency (ER) | payer OTHER ==
[~2021-09-17] VITALS: Ht 170.2 cm; Wt 90.7 kg
[2021-09-17] MEDS ORDERED: DECADRON4 MG PO (16:29)
[2021-09-17 16:38] VITALS: BP 124/82
--- NOTE | 2021-09-19 15:08 | EKG ---
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: : 1965 Requested By: Mikey Willis Order Number: [id number] MD: Lobo Aquino Measurements Intervals [place] Rate: 90 P: 67 [place]: 137 QRS: 7 QRSD: 81 T: 50 QT: 340 QTc: 416 Interpretive Statements Sinus rhythm Compared to ECG 02/26/2021 10:27:32 Sinus bradycardia no longer present Electronically Signed On 09-19-2021 15:08:09 [employer]ERA 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
== END 2021-09-17 16:39 | disposition home or self-care (01) ==
LOC: M.ERS 13:28
DX: U07.1 COVID-19 (principal); F17.210 Nicotine dependence, cigarettes, uncomplicated; Z90.710 Acquired absence of both cervix and uterus